=== PATIENT | female | born 1960 | race Two or more races ===

== ENCOUNTER 2018-12-21 10:08 | Day surgery (SDC) | payer BC ==
[~2018-12-21] VITALS: Ht 160 cm; Wt 60.3 kg
[2018-12-21] VITALS (10 sets, daily range): BP systolic 99–118; BP diastolic 54–72
--- NOTE | 2018-12-21 10:51 | Pre-Procedure Note/Attestation ---
Pre-Procedure Note/Attestation Complete Prior to Procedure Planned Procedure: not applicable Procedure Narrative: colonoscopy Indications for Procedure Pre-Operative Diagnosis: screening Attestation I attest that I discussed the nature of the procedure; its benefits; risks and complications; and alternatives (and the risks and benefits of such alternatives ), prior to the procedure, with the patient (or the patient's legal primary care sales representative). I attest that, if there was a reasonable possibility of needing a blood transfusion, the patient (or the patient's legal primary care sales representative) was given the [facility] standardized written summary, pursuant to the [employer] Blood Safety Act ([place] Health and Safety Code # 1645, as amended). I attest that I re-evaluated the patient just prior to the surgery and that there has been no change in the patient's H&P, except as documented below: Liu Dacosta MD December 21, 2018 10:51
--- NOTE | 2018-12-21 10:52 | Short Stay Surgery H&P ---
History of Present Illness History of Present Illness Chief Complaint screening colon HPI Jaz Fung is a 58 year old female who was admitted on for Colonoscopy Screening Patient History PAST MEDICAL HISTORY: (1) pelvic malegnancy Review of Systems Cardiovascular: Reports: no symptoms Respiratory: Reports: no symptoms Skeletal: Reports: no symptoms Gastrointestinal: Reports: no symptoms Genitourinary: Reports: no symptoms Neurologic: Reports: no symptoms Endocrine: Reports: no symptoms Hematologic: Reports: no symptoms Physical Exam Skin: normal HENT: normal Heart: normal Lungs: normal Abdomen: normal Extremities: normal Plan Plan of Care colonoscopy Attestation Are the patient's medical conditions optimized for surgery? Attestation Response: yes Liu Dacosta MD December 21, 2018 10:52
--- NOTE | 2018-12-21 12:21 | Anethesia Preoperative Eval ---
Anesthesia Pre-op PMH/ROS General Date of Evaluation: December 21, 2018 Anesthesiologist: Spring Boyce CRNA ASA Score: ASA 2 Mallampati Score Class I : Soft palate, uvula, fauces, pillars visible Class II: Soft palate, uvula, fauces visible Class III: Soft palate, base of uvula visible Class IV: Only hard plate visible Mallampati Classification: Class II Surgeon: Olesya Diagnosis: Colon Screening Surgical Procedure: Colonoscopy Anesthesia History: PONV Family History: no anesthesia problems Allergies: Coded Allergies: No Known Allergies (Unverified , 12/21/18) Medications: see eMAR Patient NPO?: Yes NPO Date: December 21, 2018 NPO Time: 00:00 Past Medical History Cardiovascular: Reports: other - Hypercholesterolemia Pulmonary: Reports: other - colon tumor s/p resection PMH Narrative: as noted above PSxH Narrative: (B) tubal ligation, hysterectomy, exp lap Anesthesia Pre-op Phys. Exam Physician Exam Last Vital Signs Date Time Temp Pulse Resp B/P (MAP) Pulse Ox O2 Delivery O2 Flow Rate FiO2 12/21/18 12:03 98.5 56 18 99/55 97 Room Air Constitutional: NAD Neurologic: CN 2-12 intact Cardiovascular: RRR Respiratory: CTA Airway Exam Mallampati Score: Class II MO: full Neck: FROM TMD: 3 FB ROM: full Teeth: intact Dentures: no upper, no lower Anesthesia Pre-op A/P Studies Pre-op Studies: EKG - SB Risk Assessment & Plan Assessment: ASA 2, OK to proceed Plan: MAC Status Change Before Surgery: No Pre-Antibiotics Given Within 1 Hr of Incision: Spring Azar CRNA December 21, 2018 12:21
[2018-12-21] MEDS ORDERED: Propofol 200mg/20ml IV ONE (12:31)
[2018-12-21] MEDS ORDERED: NS 500ML ONE (12:31)
[2018-12-21] MEDS ORDERED: Lidocaine 1% MPF 10mg/ml 5ml ONE (12:31)
--- NOTE | 2018-12-21 13:10 | Immediate Post-Op Evaluation ---
Immediate Post-Op Evalulation Immediate Post-Op Evalulation Procedure: colonoscopy Date of Evaluation: December 21, 2018 Time of Evaluation: 13:01 IV Fluids: 0.9 NS 300 ml Blood Pressure Systolic: 103 Blood Pressure Diastolic: 62 Pulse Rate: 57 Respiratory Rate: 16 O2 Sat by Pulse Oximetry: 99 Temperature (Fahrenheit): 97.8 Pain Score (1-10): 0 Nausea: No Vomiting: No Patient Status: awake, patent Hydration Status: adequate Given Within 1 Hr of Incision: Spring Azar CRNA December 21, 2018 13:10
--- NOTE | 2018-12-21 14:18 | 48 Hour Post Anesthesia Eval ---
Post Anesthesia Evaluation Procedure: colonoscopy Date of Evaluation: December 21, 2018 Time of Evaluation: 14:17 Blood Pressure Systolic: 99 0: 55 Pulse Rate: 57 Respiratory Rate: 15 Temperature (Fahrenheit): 98.5 O2 Sat by Pulse Oximetry: 99 Nausea: No Vomiting: No Pain Intensity: 0 Hydration Status: adequate Cardiopulmonary Status: stable Mental Status/LOC: patient returned to baseline Follow-up Care/Observations: per GI Post-Anesthesia Complications: none Follow-up care needed: N/A Spring Boyce CRNA December 21, 2018 14:18
--- NOTE | 2018-12-21 17:45 | Procedure Note ---
DATE OF PROCEDURE: 12/21/2018 SURGEON: Liu Dacosta M.D. PROCEDURE: Colonoscopy. ANESTHESIA: Per Spring ARANGO. INSTRUMENT: Olympus adult flexible colonoscope. INDICATIONS: Screening colonoscopy. REASON FOR PROCEDURE: The procedure, risks, benefits, and possible consequences, including hemorrhage, aspiration, perforation and infection, and alternative treatments, were explained to the patient/legal guardian by Dr. Liu Dacosta and the patient/legal guardian understood and accepted these risks. PROCEDURE IN DETAIL: After informed consent was obtained and the patient was adequately sedated, first rectal exam was performed, which was normal. Then, the scope was advanced from rectum into the cecum and then subsequently into the terminal ileum. Quality of prep was very good. The patient had normal colonoscopy examination. No obvious mass, polyp or any other pathology was seen. Retroflexion of rectum showed evidence of few nonbleeding small internal hemorrhoids. SUMMARY OF FINDINGS: Normal colonoscopy examination except for internal hemorrhoids. RECOMMENDATIONS: Repeat colonoscopy in 5 years. I want to thank, Dr. Jesus Manuel Johnson, for this kind referral. Liu Dacosta M.D. DR: Krystle JOB#: [id number] CC: Jesus Manuel Johnson M.D.; Fax#: [phone]
== END 2018-12-21 14:15 | disposition home or self-care (01) ==
LOC: GAS 10:08 → EDSEX 10:08 → GAS 14:15
DX: Z12.11 Encounter for screening for malignant neoplasm of colon (principal); K64.8 Other hemorrhoids; E78.00 Pure hypercholesterolemia, unspecified; Z90.710 Acquired absence of both cervix and uterus
CPT/HCPCS: 45378; J2704; J7040; 94003; 94150